=== PATIENT | female | born 2000 | race Caucasian/White ===

== ENCOUNTER 2023-10-26 19:33 | Emergency (ER) | payer OTHER ==
[~2023-10-26] VITALS: Ht 160 cm; Wt 77.1 kg
[~2023-10-26 19:33] MED LIST: ALBU-118 IH
[2023-10-26 19:58] VITALS: BP 125/82; PULSE 105; RESP 16; TEMP 97.9; O2SAT 98
[2023-10-26] MEDS: IBUPROFEN 600 MG TAB PO ONE (21:08)
[2023-10-26] MEDS ORDERED: IBUP-2213 PO (21:47)
[2023-10-26] MEDS ORDERED: CYCL-711 PO (21:47)
== END 2023-10-26 22:14 | disposition home or self-care (01) ==
LOC: MED 19:33
DX: S16.1XXA Strain of muscle, fascia and tendon at neck level, initial encounter (principal); R07.89 Other chest pain; M54.50 Low back pain, unspecified; Z79.899 Other long term (current) drug therapy; V89.2XXA Person injured in unspecified motor-vehicle accident, traffic, initial encounter; Y93.89 Activity, other specified; Y92.410 Unspecified street and highway as the place of occurrence of the external cause; Y99.8 Other external cause status
CPT/HCPCS: 71045; 99283